=== PATIENT | male | born 1955 | race Caucasian/White ===

== ENCOUNTER → 2024-12-09 11:41 | Emergency (ER) | payer OTHER, SELFPAY ==
[2024-12-09 11:46] VITALS: BP 140/74
[2024-12-09 12:06] LABS: % Basophils 1.1 % (0-2); % Eosinophils 3.9 % (0-6); % Immature Granulocytes 0.2 % (0-0.5); % Monocytes 8.9 % (1.7-9.3); % Neutrophils 56.9 % (42.2-75.2); Absolute Basophils 0.1 10^3/uL (0-0.2); Absolute Eosinophils 0.2 10^3/uL (0-0.7); Absolute Lymphocytes 1.6 10^3/uL (1.2-3.4); Absolute Monocytes 0.5 10^3/uL (0.1-0.6); Absolute Neutrophils 3.2 10^3/uL (1.4-6.5); Hematocrit 41.1 % (39.0-52.0); Hemoglobin 13.9 g/dL (13.0-18.0); Mean Corp Hgb Conc. 33.8 g/dL (33.0-37.0); Mean Corpuscular Hgb 30.5 pg (27.0-31.0); Mean Corpuscular Volume 90.3 fL (80.0-94.0); Mean Platelet Volume 9.7 fL (7.4-10.4); Nucleated Red Blood Cells % 0 % (-); Platelet Count 272 10^3/uL (130-400); Red Blood Cell Count 4.55 10^6/uL (4.70-6.10); Red Cell Dist. Width 13.8 % (11.5-14.5); White Blood Cell Count 5.6 10^3/uL (4.8-10.8)
[2024-12-09 12:26] LABS: ALT (SGPT) 25 U/L (0-50); AST (SGOT) 24 U/L (17-59); Albumin 4.3 g/dl (3.5-5.0); Alkaline Phosphatase 51 U/L (38-126); Blood Urea Nitrogen 19 mg/dl (9-20); Calcium 9.6 mg/dl (8.4-10.2); Carbon Dioxide 29 mmol/L (22-30); Chloride 102 mmol/L (98-107); Glucose 93 mg/dl (70-99); Potassium 4.6 mmol/L (3.5-5.1); Sodium 138 mmol/L (135-145); Total Bilirubin 0.5 mg/dl (0.2-1.3); Total Protein 7.3 g/dl (6.3-8.2); eGFR > 60.00
[2024-12-09 12:45] LABS: Troponin I < 0.012 ng/ml
[2024-12-09 14:10] VITALS: BP 123/81
--- NOTE | 2024-12-09 15:07 | ED.GENMED ---
History of Present Illness
General
Chief Complaint: Chest Pain
Source: patient
Exam Limitations: none
Time Seen by Provider: 12/09/24 15:06
Nursing documentation reviewed up to this point in time: agreed with
History of Present Illness
History of Present Illness:
69-year old male with history of HTN, asthma presents for intermittent chest pain. States while standing at his desk at work at between 8 and 11 AM every 1/2 hour he would get short fleeting chest pains once or twice lasting only a second. He has
had multiple similar episodes since his last episode was 230. He has no chest pain now. It is not associated with anything such as lightheadedness, shortness of breath, nausea.
Does have a history of chronic sinus congestion and chronic cough which is worse during the hernandez. He states 3 days ago he had a mild fever and increased congestion. No known sick contacts.
Past History
Past History
ED Past Medical History: Asthma ('cough variant asthma') and HTN
ED Past Surgical History: Orthopedic
Social History
Tobacco: Non-smoker
Alcohol: Occasional
Personal:
Living: with family
Employment: Employed
Review of Systems
Review of Systems
Allergies reviewed?: Yes
All Other Systems: ROS reviewed and negative except as documented in HPI and ROS
Constitutional: Denies fever or fatigue
EENT: Denies sore throat
Respiratory: Reports cough; Denies trouble breathing
Cardiac: Reports chest pain; Denies diaphoresis, palpitations or syncope
ABD/GI: Denies abdominal pain, nausea, vomiting or diarrhea
: Reports no symptoms
Musculoskeletal: Reports no symptoms
Skin: Reports no symptoms
Neurological: Reports no symptoms
Phy Exam
Physical Exam
Physical Exam:
GENERAL: No acute distress. A&Ox3.
CONSTITUTIONAL: Afebrile.
EYES: clear, conjunctivae normal
ENMT: moist mucus membranes, Pharynx nl
RESPIRATORY: Regular respirations, nonlabored, lungs clear.
CARDIOVASCULAR: Regular rate and rhythm, no murmurs, no rubs.
GI: Soft, nontender, normal BS
MUSCULOSKELETAL: Moves with ease. Well perfused.
SKIN: Warm, dry, pink
PSYCH: Normal mood and affect. Well kept, interactive and appropriate
NEUROLOGIC: Awake, alert and oriented. No focal neurological deficits
Scores
Heart Score for Chest Pain Patients
STEMI patient?: Not applicable
Course
Orders/Labs/Results
Orders:
Orders
12/09/24 11:42
ECG [Electrocardiogram (*1)] Urgent
Reason for Study: Chest Pain
EKG- Treatment ONCE
12/09/24 11:55
Complete Blood Count/With Diff Urgent
Comprehensive Metabolic Panel Urgent
Troponin I Urgent
12/09/24 15:16
CR Chest - 2 Views Urgent
Comment:
Reason For Exam: cough, chest pains
12/09/24 16:25
COVID-19 Antigen Urgent
Source: Nasal Swab
Influenza A+B Rapid Molecular Urgent
KALIE Source: Nasal Swab
Specimen Description:
Abnormal Lab Results
12/09/24 12/09/24
11:55 16:25
RBC 4.55 L 10^6/uL
(4.70-6.10)
SARS-CoV-2 Antigen Positive A
(Negative)
12/09/24 11:55
12/09/24 11:55
Vital Signs
Initial and Last Documented VS:
Initial Vital Signs
Temp Pulse Resp BP Pulse Ox
99 F 71 20 140/74 98
12/09/24 11:46 12/09/24 11:46 12/09/24 11:46 12/09/24 11:46 12/09/24 11:46
Last Documented Vital Signs
Temp Pulse Resp BP Pulse Ox
99 F 65 18 123/81 97
12/09/24 11:46 12/09/24 14:10 12/09/24 14:10 12/09/24 14:10 12/09/24 14:10
MDM/Problems Addressed
Differential Diagnosis Includes:
Pleurisy, costochondritis, angina
MDM/Problems Addressed:
69-year old male with history of HTN, asthma presents for intermittent chest pain. States while standing at his desk at work at between 8 and 11 AM every 1/2 hour he would get short fleeting chest pains once or twice lasting only a second. He has
had multiple similar episodes since his last episode was 230. He has no chest pain now. It is not associated with anything such as lightheadedness, shortness of breath, nausea.
Does have a history of chronic sinus congestion and chronic cough which is worse during the hernandez. He states 3 days ago he had a mild fever and increased congestion. No known sick contacts.
Afebrile, NAD
EKG NSR
CBC normal
CMP normal
Troponin normal
4:00 p.m.
CXR radiology report read:IMPRESSION:
Moderate hiatal hernia/partially intrathoracic stomach.
No evidence of active cardiopulmonary disease.
Discussed results with pt and / All questions answered.
They have GI doctor and he has had esophageal ring dilatation in past, they are requesting new GI referral. Discussed hiatal hernia. Given Pulmonary referral also for his chronic cough
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
Although no typical Covid/Flu signs, for completeness will check Covid and Flu, pt will be called with results.
5:00 p.m.
Covid positive
Flu neg
Pt informed and we discussed quarantine and viral illness precautions.
*Critical Care Note
Total Time (30-74mins, 75-104mins- exclusive of procedures): Not Applicable
ED Attending Note
-
Portions of this chart may have been created with voice recognition software.� Occasional wrong word or��sound alike� substitutions may have occurred due to the inherent limitations of voice recognition software.
Discharge Plan
Departure
Patient Disposition: Home (Routine Discharge)
Date of Disposition: 12/09/24
Time of Disposition: 16:07
Patient with high blood pressure during this ER visit?: No
Condition: Good
Covid-19: Confirmed COVID-19
Discharge Problem:
Atypical chest pain, COVID-19
Instructions: Chest Pain That Is Not Caused by the Heart (DC), Costochondritis (DC), Hiatal hernia - Discharge instructions
Referrals:
Darrius Rivera MD [Affiliate] - Next open appointment
Maia Lin MD [Active] - Next open appointment
Trev Thompson MD [Active] - Next open appointment
Activity Restrictions/Additional Instructions:
As we discussed, nothing worrisome in your workup here today.
Call Dr. Rivera's office and make next available appointment for more thorough cardiac workup.
I have provided you with the name of the GI doctor to use if needed about your esophagus ring stretching and hiatal hernia
Interventions
Interventions:
*Risk Screen - Suicide Last Done: 12/09/24 11:46
*General Assessment Last Done: 12/09/24 11:46
*Neglect/Abuse Screening Last Done: 12/09/24 11:46
Discharge Date and Time
Print Language: TURKISH
[2024-12-09 16:48] LABS: COVID-19 Antigen Positive (Negative)
== END | disposition home or self-care (01) ==
LOC: EMR 11:41
PROVIDERS: Emergency Medicine; Registered Nurse; EMERGENCY PHYSICIAN Emergency Medicine; FAMILY PHYSICIAN Family Medicine
DX: R07.89 Other chest pain (principal); U07.1 COVID-19; Z11.52 Encounter for screening for COVID-19; K22.2 Esophageal obstruction; K44.9 Diaphragmatic hernia without obstruction or gangrene; R05.3 Chronic cough; I10 Essential (primary) hypertension; J45.909 Unspecified asthma, uncomplicated; Z88.6 Allergy status to analgesic agent
CPT/HCPCS: 99283; 71046; 80053; 84484; 85025; 87502; 87811; 93005